=== PATIENT | female | born 1990 | race Caucasian/White ===

== ENCOUNTER → 2016-11-12 | Outpatient (CLI) | payer OTHER ==
[~2016-11-12] MED LIST: FERR1TAB23; PRENTAB26 PO; RANI150T3 PO
[2016-11-12 12:17] LABS: BASO % 0.3 %; BASO ABS # 0.02 K/uL (0-0.2); COMPLETE YES; EOS % 1.5 %; HEMATOCRIT 39.1 % (37-47); LYMPH % 42.7 %; LYMPH ABS # 2.62 K/uL (1.2-3.4); MEAN CELL VOLUME 87.3 fL (80-100); MEAN CORPUSCULAR HEMOGLOBIN 30.1 pg (25-34); MEAN CORPUSCULAR HGB CONC 34.5 g/dl (32-36); MEAN PLATELET VOLUME 11.2 fL (7.4-10.4); MONO % 6.9 %; NEUT % 48.6 %; PLATELET COUNT 220 K/uL (130-400); RED BLOOD COUNT 4.48 M/uL (4.2-5.4); WHITE BLOOD COUNT 6.13 K/uL (4.8-10.8)
[2016-11-12 12:31] LABS: ALT/SGPT 83 U/L (12-78); AST/SGOT 32 U/L (15-37); BLOOD UREA NITROGEN 15 mg/dl (7-18); BUN/CREATININE RATIO 17.3 (10-20); CALCIUM 9.3 mg/dl (8.5-10.1); CARBON DIOXIDE 27 mmol/L (21-32); CHLORIDE 105 mmol/L (98-107); CHOLESTEROL 230 mg/dl (0-200); CREATININE 0.88 mg/dl (0.60-1.20); GLUCOSE 80 mg/dl (70-99); SODIUM 142 mmol/L (136-145); TRIGLYCERIDES 174 mg/dl (0-150); VERY LOW DENSITY LIPOPROT CALC 35 mg/dl
[2016-11-12 12:37] LABS: HEPATITIS B AB POS
[2016-11-12 12:40] LABS: ALB/GLOB RATIO 1.3 (0.9-2); ALKALINE PHOSPHATASE 63 U/L (45-117); CHOLESTEROL/HDL RATIO 3.8; HDL CHOLESTEROL 60 mg/dl; LDL CHOLESTEROL CALCULATED 135 mg/dl; TOTAL IRON BINDING CAPACITY 342 mcg/dl (250-450)
== END | disposition home or self-care (01) ==
LOC: C.LABBFT 09:11
PROVIDERS: ATTEND Internal Medicine
DX: Z00.00 Encounter for general adult medical examination without abnormal findings (principal); R94.5 Abnormal results of liver function studies

== ENCOUNTER → 2017-01-28 | Outpatient (CLI) | payer OTHER ==
[2017-01-28 07:05] LABS: ALKALINE PHOSPHATASE 48 U/L (45-117); ALT/SGPT 29 U/L (12-78); AST/SGOT 17 U/L (15-37)
== END | disposition home or self-care (01) ==
LOC: C.LAB 05:40
PROVIDERS: ATTEND Internal Medicine
DX: R94.5 Abnormal results of liver function studies (principal)

== ENCOUNTER → 2017-09-14 | Outpatient (CLI) | payer OTHER ==
[2017-09-14 15:08] LABS: URINE APPEARANCE CLEAR (CLEAR); URINE BILIRUBIN NEG (NEG); URINE COLOR YELLOW; URINE EPITHELIAL CELL AUTO >30 /lpf (0-5); URINE NITRITE NEG (NEG); URINE PH 5.5 (4.5-7.5); URINE SPECIFIC GRAVITY 1.029 (1.000-1.030); UROBILINOGEN NEG (NEG)
[2017-09-14 15:12] LABS: MANUAL MICROSCOPIC REQUIRED? NO; REVIEW REQ? YES
== END | disposition home or self-care (01) ==
LOC: C.LABSPEC 14:01
PROVIDERS: ATTEND Obstetrics & Gynecology
DX: Z34.91 Encounter for supervision of normal pregnancy, unspecified, first trimester (principal); Z3A.00 Weeks of gestation of pregnancy not specified

== ENCOUNTER → 2017-09-21 | Outpatient (CLI) | payer OTHER ==
[2017-09-21 10:35] LABS: BASO % 0.2 %; BASO ABS # 0.02 K/uL (0-0.2); COMPLETE YES; EOS % 0.9 %; HEMATOCRIT 40.9 % (37-47); IG% 0.3 %; LYMPH % 32.7 %; LYMPH ABS # 3.33 K/uL (1.2-3.4); MEAN CELL VOLUME 87.4 fL (80-100); MEAN CORPUSCULAR HEMOGLOBIN 29.3 pg (25-34); MEAN CORPUSCULAR HGB CONC 33.5 g/dl (32-36); MEAN PLATELET VOLUME 11.1 fL (7.4-10.4); MONO % 4.9 %; PLATELET COUNT 225 K/uL (130-400); RED BLOOD COUNT 4.68 M/uL (4.2-5.4); WHITE BLOOD COUNT 10.18 K/uL (4.8-10.8)
[2017-09-23 01:11] LABS: CHLAMYDIA TRACH RNA*** NOT DETECTED (NOT DETECTED); GC (NEIS GONORRHOEAE)RNA** NOT DETECTED (NOT DETECTED)
== END | disposition home or self-care (01) ==
LOC: C.LAB1850 08:47
PROVIDERS: ATTEND Obstetrics & Gynecology
DX: Z34.91 Encounter for supervision of normal pregnancy, unspecified, first trimester (principal); Z3A.00 Weeks of gestation of pregnancy not specified

== ENCOUNTER → 2017-11-16 | Outpatient (CLI) | payer OTHER | END | disposition home or self-care (01) | LOC: C.LAB1850 08:33 | PROVIDERS: ATTEND Obstetrics & Gynecology | DX: Z34.82 Encounter for supervision of other normal pregnancy, second trimester (principal); Z3A.00 Weeks of gestation of pregnancy not specified ==

== ENCOUNTER → 2018-02-12 | Outpatient (CLI) | payer OTHER ==
[2018-02-12 12:29] LABS: HEMATOCRIT 39.1 % (37-47); HEMOGLOBIN 13.1 g/dL (12.0-16.0)
== END | disposition home or self-care (01) ==
LOC: C.LAB1850 08:49
PROVIDERS: ATTEND Obstetrics & Gynecology
DX: Z34.83 Encounter for supervision of other normal pregnancy, third trimester (principal)

== ENCOUNTER → 2018-06-10 | Outpatient (CLI) | payer OTHER ==
[~2018-06-10] MED LIST changes: +DOCU-94 PO; +PRLSR20 PO; -RANI150T3 PO
== END | disposition home or self-care (01) ==
LOC: C.PAPS 15:42
PROVIDERS: ATTEND Obstetrics & Gynecology
DX: Z12.4 Encounter for screening for malignant neoplasm of cervix (principal)